=== PATIENT | male | born 1955 | race Caucasian/White ===

== ENCOUNTER 2017-05-27 15:21 | Emergency (ER) | payer OTHER ==
[~2017-05-27] VITALS: Ht 185.4 cm; Wt 81.0 kg
[~2017-05-27 15:21] MED LIST: ASPI-1182 PO; CITA20TA9 PO; METO50 PO
[2017-05-27] MEDS ORDERED: BUPR75 PO (16:12)
[2017-05-27 16:16] VITALS: BP 135/80
== END 2017-05-27 16:44 | disposition home or self-care (01) ==
LOC: EMS 15:22
DX: F10.20 Alcohol dependence, uncomplicated (principal); F32.9 Major depressive disorder, single episode, unspecified; I10 Essential (primary) hypertension; I48.91 Unspecified atrial fibrillation; Z79.82 Long term (current) use of aspirin
CPT/HCPCS: 99283